=== PATIENT | female | born 1985 | race Caucasian/White ===

== ENCOUNTER 2023-09-15 16:37 | Outpatient (CLI) | payer OTHER, SELFPAY ==
[2023-09-15 20:17] LABS: Chlamydia DNA Amplified* NOT DETECTED (No Detected); GC DNA Amplified* NOT DETECTED (No Detected)
== END 2023-09-15 16:38 | disposition home or self-care (01) ==
PROVIDERS: PCP Family Medicine; Visit Provider Registered Nurse
DX: Z11.3 Encounter for screening for infections with a predominantly sexual mode of transmission (principal); Z13.220 Encounter for screening for lipoid disorders; Z13.29 Encounter for screening for other suspected endocrine disorder; Z13.1 Encounter for screening for diabetes mellitus
CPT/HCPCS: 80061; 82947; 84443; 87491; 87591

== ENCOUNTER 2025-01-25 17:38 | Emergency (ER) | payer OTHER, SELFPAY ==
[2025-01-25] VITALS (14 sets, daily range): BP systolic 105–156; BP diastolic 80–91; PULSE 80–90; RESP 18; TEMP 37.2–37.8; O2SAT 96–99; BMI 36.3
--- OUTSIDE RECORDS SUMMARY | 2025-01-25 17:40 | XMS_ITS | Clinical Summary ---
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 30 Capsule 4 Active dextroamphetamine- amphetamine (Adderall XR) 10 mg Extended-Release capsuleIndications :ADHD (attention deficit hyperactivity disorder), combined type Take 1 Capsule (10 mg) by mouth once daily. 30 Capsule 4 Active dextroamphetamine- amphetamine (Adderall XR) 10 mg Extended-Release capsuleIndications :ADHD (attention deficit hyperactivity disorder), combined type Take 1 Capsule (10 mg) by mouth once daily. 30 Capsule 5 Active dextroamphetamine- amphetamine (Adderall XR) 30 mg Extended-Release capsuleIndications :ADHD (attention deficit hyperactivity disorder), combined type Take 1 Capsule (30 mg) by mouth once daily. 30 Capsule 5 Active Active Problems Problem Noted Date Diagnosed Date Multiple thyroid nodules 01/11/2017 Overview (01/11/2017): Due for follow up ultrasound in 10/2017 Obesity, Class II, BMI 35-39.9 08/05/2016 Overview (08/05/2016): Off Phentiramine by 07/08/17 ADHD (attention deficit hype ractivity disorder), combined type 12/25/2014 Overview (05/22/2020): Betzy is at max dose of 40 mg daily as of 05/22/2020. Marlo Golden MD signed electronically .................... 05/22/2020 Chronic fatigue syndrome 10/31/2014 Overview (10/31/2014): Diagnosed by me on 10/31/14 based on 7 months of fatigue and no other diagnosis. She also has cognitive impairment, muscle/joint pains, headaches, sore throat, unrefreshing sleep, and malaise after exercise. She also had a negative lab work up. Marlo Golden MD 10/31/2014. Fatigue 10/24/2014 Overview (10/24/2014): She has always needed more sleep than others. Symptoms worsened in 2013 & 2014 She had a perfectly normal sleep study in 2013. Anxiety 08/08/2014 Diarrhea 01/05/2012 Overview (01/05/2012): EGD 12/2011 normal Colonoscopy 12/2011 normal IBS (irritable bowel syndrome) 03/23/2010 Resolved Problems Problem Noted Date Diagnosed Date Resolved Date Exercise induced bronchospasm 11/08/2013 03/29/2024 Chest pain, unspecified 08/21/200706/10 Overview (08/21/2007): She has had them for 5 years. Normal chest radiograph and EKG. Immunizations Immunization Administration Dates Next Due COVID-19 vaccine (Teliportme 30mcg/0.3mL) JOSÉ MORE 08/04/2020,07/14/2020 DTP 03/06/1991 DTaP 04/16/1986,02/19/1986,1985 HIB HbOC (HibTITER) 04/07/1989 HPV 9 (Gardasil 9) 10/20/2023 Hepatitis B (Adult) 09/08/2006,02/15/2000,1999 Influenza A (H1N1), Inactivated 05/06/2009 Influenza, IIV3 (Age >=3 years) 05/10/2017,04/23,05/06/2011 Influenza, IIV4 04/11/2023,05/06/2022,07/16/2015 MMR 10/23/1997,01/30/1987 Polio Virus, Unspecified 02/19/1986,1985 Td (Age >=7 Years) 10/23/1997 Tdap 07/06/2017,09/04/2007 Family History Medical History Relation Name Comments Other Father Kidney stones, Arthritis Heart Disease Maternal Grandfather Psychiatric illness Maternal Grandmother depression at age 76 Other Mother Spondylolishtes is, migraines, arthritis, fatigue Psychiatric illness Mother anxiety Psychiatric illness Paternal Aunt questio n bipolar behaviors Diabetes Paternal Grandfather Heart Disease Paternal Grandfather [place] in 50s Hypertension Paternal Grandfather Diabetes Paternal Grandmother Heart Disease Paternal Grandmother Other Sister kidney stones, migraines, anxiety, asthma Anesthesia Malignant Hyperthermia No Family History Blood Disease No Family History Relation Name Status Comments Father Maternal Grandfather Maternal Grandmother Mother Paternal Aunt Paternal Grandfather Paternal Grandmother Sister Social History Tobacco Use Types Packs/Day Years Used Date Smoking Tobacco: Never Smokeless Tobacco: Never Tobacco Cessation:Counseling Given: Yes Alcohol Use Standard Drinks/Week Comments Yes 0 (1 standard drink = 0.6 oz pur e alcohol) PHQ-2 Answer Date Recorded PHQ-2 TOTAL SCORE 0 03/29/2024 Social Connections Answer Date Recorded Do you often feel lonely or isolated from those around you? 0 03/29/2024 Alcohol Use Answer Date Recorded How often do you have a drink containing alcohol ? 2 05/16/2023 How many drinks containing a lcohol do you have on a typical day when you are drinking? 0 05/16/2023 How often do you have five or more drinks on one occasion? 0 05/16/2023 Financial Resource Strain Answer Date R ecorded Difficulty of Paying Living Expenses 3 03/29/2024 Difficulty of Paying Living Expenses Not on file 03/29/2024 Food Insecurity Answer Date Recorded Do you worry your food will run out before you are able to buy more? 1 03/29/2024 Transportation Needs Answer Date Record ed Does lack of transportation keep you from medica l appointments? 1 03/29/2024 Does lack of transportation keep you from work, meetings or getting things that you need? 1 03/29/2024 Housing Stability Answer Date Recorded What is your housing situation today? 1 03/29/2024 Utilities Answer Date Recorded Do you have trouble paying f or utilities (for example, heat, electricity, water, phone)? 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 Not on file Not on file Not on file Not on file Not on file Not on file Not on file Obstetrics History Para Term AB IAB SAB Ectopic Multiple Livin g Live Births 3 1 1 2 Date Outcome GA Total Labor Labor/2nd/3rd Weight Sex Type Anes PTL Mary A1 A5 Name Clin F 2009 Term 40w0 d 10h 00m/ 3.77 kg (8 lb 5 oz) F Vag Last Filed Vital Signs Vital Sign Reading Time Taken Comments Blood Pressure 128/85 03/29/2024 2:25 PM CDT Pulse 88 03/29/2024 2:25 PM CDT Temperature 37.2 C (98.9 F) 05/31/2023 4:26 PM RECESSING MACHINE OPERATOR Respiratory Rate 16 02/20/2015 1:26 PM CDT Oxygen Saturation 98% 03/29/2024 2:25 PM CDT Inhaled Oxygen Concentration - - Weight 108.4 kg (238 lb 14.4 oz) 03/29/2024 2:25 PM CDT Height 170 cm (5' 6.93) 03/29/2024 2:25 PM CDT Body Mass Index 37.5 03/29/2024 2:25 PM CDT Plan of Treatment Health Maintenance Due Date Last Done Comments Hepatitis C screening for age 18-79 10/18/2003 COVID-19 vaccine series ( season) 2024 08/04/2020, 07/14/2020 Influenza Vaccine (#1) 2025 , 05/06/2022, 05/10/2017, Additional history exists BMI (ht and wt on same day) for age 18+ 03/29/2025 03/29/2024, 05/16/2023, 07/23/2021, Additional history exists Depression screening for age 12+ 03/29/2025 03/29/2024, 11/11/2022, 05/22/2020, Additional history exists Tetanus booster 07/06/2027 07/06/2017, 08/11, 10/23/1997 Pap test for age 21-65 09/14/2028 , 09/15/2023, 01/11/2019, Additional history exists Hepatitis B series for 19+ Completed 09/08, 02/15/2000, 12/10/1999 HIV for age 15-65 Completed 04/17/2015, , 11/14/2008 Pneumococcal series for age 6-49 Aged Out No longer eligible based on patient's age to complete this topic Procedures Procedure Name Priority Date/Time Associated Diagnosis Comments CLINICAL RESEARCH MANAGER THIN PREP PAP SCREEN IMAGED Routine 09/15/2023 4:30 PM RECESSING MACHINE OPERATOR ANTI HIV 1/2 Routine 04/17/2015 1:58 PM CDT Encounter for supervision of other normal in first trimester (HC) from Last 3 Months or Most Recently Relevant to Health Maintenance Results * (ABNORMAL) CLINICAL RESEARCH MANAGER THIN PREP PAP SCREEN IMAGED (09/15/2023 4:30 PM RECESSING MACHINE OPERATOR) Case Report Gynecologic Cytology Report Case: [id number] Authorizing Provider: Audrey Sanchez NP Collected: 09/15/2023 1630 Ordering Location: [facility] Received: 09/19/2023 1232 First Screen: Johnna Enriquez Pathologist: Daylin Meehan MD Specimen: CLINICAL RESEARCH MANAGER ThinPrep Vial Screening, Cervical 09/25/2023 4:03 PM CDT [facility] INTERPRETATION/ RESULT LOW GRADE SQUAMOUS INTRAEPITHELIAL LESION (LSIL) CANNOT EXCLUDE A HIGHER-GRADE LESION(A) (none) 09/25/2023 4:03 PM CDT [facility] at 1603 CDT SPECIMEN ADEQUACY Satisfactory for evaluation Endocervical component present 09/25/2023 4:03 PM CDT [facility] HPV REQUEST HPV and PAP 09/25/2023 4:03 PM CDT [facility] Date of LMP 09/14/2023 09/25/2023 4:03 PM CDT [facility] Last Pap Date 05/15/2015 09/25/2023 4:03 PM CDT [facility] Last Pap Result NIL 4:03 PM CDT [facility] Abnormal Pap or Jasper Bx in last 5 years No 09/25/2023 4:03 PM CDT [facility] Menstrual Status Regular Periods 09/25/2023 4:03 PM CDT [facility] Jasper Bx Done Today No 09/25/2023 4:03 PM CDT [facility] Additional Information 09/25/2023 4:03 PM CDT [facility] Comment: Interpreted at [facility] Central Laboratory - [address] [address] Automated Review Successful 09/25/2023 4:03 PM CDT [facility] Comment:Specimen processed s uccessfully by automated assembler small products device, ThinPrep Imaging System, [employer] ANCILLARY TESTING CLINICAL RESEARCH MANAGER HPV Ordered, Please see separate report 09/25/2023 4:03 PM CDT [facility] Note The pap test is a screening technique, not a diagnostic procedure. It is used primarily to screen for squamous cancers and precursor lesions. Published studies have shown that it is subject to both false negative and false positive results. The pap test should not be used as the sole means to diagnose or exclude pre-malignant and malignant lesions. 09/25/2023 4:03 PM CDT [facility] Other (Cervical) 09/15/2023 4:30 PM RECESSING MACHINE OPERATOR 09/19/2023 12:32 PM CDT us Audrey Sanchez NP PATHOLOGY/CYTOLOGY Final Result [facility] [address] [place] [address], * ANTI HIV 1/2 (04/17/2015 1:58 PM CDT) HIV-1/HIV-2 ANTIBODY Non-Reacti ve Non-Reacti ve 04/17/2015 8:02 PM CDT [facility] Blood specimen (specimen) BLOOD SPECIMEN / Unknown Venipuncture / Unknown 04/17/2015 1:58 PM CDT 04/17/2015 1:59 PM CDT Narrative [facility] - 04/17/2015 8:02 PM CDT HIV-1 p24 and HIV-1/HIV-2 Ab not detected us Dena Cha NP SEND OUTS F inal Result [facility] [address] [place] [address], from Last 3 Months or Most Recently Relevant to Health Maintenance [id number] Care Teams Laundromat Worker Relationship Specialty Start Date End Date Marlo Golden MD [address] [place] [id number] [facility] - General 01/05/09
--- NOTE | 2025-01-25 17:55 | ED.ABDPAIN ---
HPI - Abdominal Pain General Time Seen by Provider: 17:55 Date Seen: 01/25/25 Chief Complaint: Abdominal Pain Stated Complaint: abdominal pain Time Seen by Provider: 01/25/25 17:40 Source: patient and RN notes reviewed Mode of arrival: ambulatory Limitations: no limitations History of Present Illness HPI narrative: This 39-year-old female is coming to the ER with right lower quadrant abdominal pain starting today. She has felt fevers with this but temperature was normal at home this morning when checked. This started earlier this morning. She actually did have nausea and vomiting, threw up once. She was subsequently able to eat some waffles around 2:00 p.m. and that did go okay. No diarrhea. She has no urinary symptoms, no flank pain. She states she did have an episode of this before in November that was self-limited. She did have a standing order to get an ultrasound in case it happened again. She does not have any known history of ovarian cysts. She has had an endometrial ablation and bilateral salpingectomies/tubal ligation done before. She has had a cholecystectomy. She has had anesthesia for other surgeries as well. MD elicited complaint: abdominal pain Related Data Home Medications ?Medication ?Instructions ?Recorded ?Confirmed dextroamphetamine-amphetamine ER 1 cap PO DAILY 09/15/23 01/25/25 30 mg 24hr capsule,extend release Allergies Allergy/AdvReac Type Severity Reaction Status Date / Time levothyroxine Allergy Mild Diarrhea Verified 01/25/25 19:01 Review of Systems Status of ROS Reports: 6 or more systems reviewed and unremarkable except as noted in History and below [facility] Medical History History of vaginal delivery Surgical History H/O adenoidectomy ?Z90.89 - Acquired absence of other organs (ICD-10) History of breast augmentation (2016) ?Z98.82 - Breast implant status (ICD-10) History of tonsillectomy (1994) ?Z90.89 - Acquired absence of other organs (ICD-10) History of endometrial ablation (2015) ?Z98.890 - Other specified postprocedural states (ICD-10) History of tubal ligation (02/20/19) ?Z98.51 - Tubal ligation status (ICD-10) History of cholecystectomy (09/18/09) ?Z90.49 - Acquired absence of other specified parts of digestive tract (ICD-10) Family History Other Diabetes Heart disease Kidney stones Lung cancer Migraines Stroke 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[facility] What is your current living situation?: I presently have a place to live Problems where you live: no known problems In the past 12 months, utilities in danger of being shut off: no In past 12 months, lack of transportation kept you from medical appts, meetings, work, or getting things needed for daily living: no In the past 12 mos, have been you worried that your food would run out before you had money to buy more?: never true In the past 12 mos, the food you bought just didn't last and you didn't have money to buy more?: never true How often does anyone, including family, friends and others, physically hurt you: never How often does anyone, including family, friends and others, insult or talk down to you: never How often does anyone, including family, friends and others, threaten you with harm: never How often does anyone, including family, friends and others, scream or curse at you: never Exam Const: Vital Signs, click to edit/add: Vital Signs - 24 hr 01/25/25 17:42 01/25/25 19:36 Temperature 100.0 F H 98.9 F Pulse Rate [Right Pulse Oximeter] 80 Respiratory Rate 18 Blood Pressure [Ri ght Upper Arm] 156/91 H Pulse Oximetry 99 Oxygen Delivery Me thod Room Air This 39-year-old female is alert, interactive, no apparent distress but looks like she does not feel well. She is sitting up on the edge of the bed. Sclera clear, face atraumatic coming able speak in complete sentences. Lungs are clear, good air entry, no wheezing crackles, no tachypnea, no accessory muscle use. No CVA tenderness on either side. CV regular rate and rhythm, no murmur, normal S1-S2, no S3-S4. Abdomen is soft, nontender, nondistended. She really does not have any significant abdominal tenderness on palpation but where the pain is is right in the right lower quadrant, she states the majority of it is right over from the anterior superior iliac spine in the abdomen. I do not feel any masses, there is certainly no rebound or guarding. Documenting provider has reviewed patient's vital signs: yes Course Course ED Course: This 39-year-old female is coming in with fever and right lower quadrant abdominal pain. We are going to proceed with CT imaging to rule out intra-abdominal pathology. We do need to consider appendicitis. Based on her abdominal exam, I do not think ovarian torsion is as likely but certainly could be a possibility, may need to consider pelvic ultrasound if there is concern for this on the CT. Could be inflammatory disorders of the colon without any diarrhea presenting. Will get full complement of labs. Will start IV fluids, start with Toradol and Zofran. If the Toradol is not covering her pain she is aware to let us know and we will move to narcotic pain management. Have discussed with her NPO status at this point given that this could be something potentially surgical. Reevaluation(s) Time of Reevaluation #1: 19:39 Reevaluation #1: Did review patient CT with her. There is nothing on this CT showing any acute intra-abdominal pathology. Recheck of an oral temperature shows that she is at 98.9? F. patient is having no vaginal discharge, no vaginal symptoms. External genitalia briefly examined and appear normal. Bimanual exam reveals no cervical motion tenderness, uterus feels anteverted but is not tender, no significant enlargement. Patient has no adnexal tenderness. It is unlikely the diagnostic etiology is pelvic inflammatory disease given that there really is not any pelvic pain on bimanual examination. Her pain is over to the inside of the anterior superior iliac spine but I really a.m. not finding any reproducible tenderness on her bimanual exam either. At this time will discharge to home for further outpatient observation. We have discussed signs and symptoms for return. She is requested to follow up in clinic next week or return if worsening. We will just have her stick to Tylenol and ibuprofen so we are not masking anything concerning. Her last episode was December 06, she actually left work and went home to come to the ER, just ended up resting and by the next day the pain was gone. I do see that there is a history of endometriosis. Time of Reevaluation #2: 19:57 Reevaluation #2: Did briefly stop back in to talk to [place]. We really had and discussed endometriosis but did review with her that that certainly can be an unidentified causative etiology of abdominal pain. I urged her to follow-up with OB next week. I will send her with 4 tablets of 5 mg oxycodone from [facility] to cover more moderate pain. She does understand if she is having significant worsening of pain that she does need re-evaluation. Vital Signs Vital signs: Initial Vital Signs Temperature 100.0 F H 01/25/25 17:42 Temperature Source Temporal Artery Scan 01/25/25 17:42 Pulse Rate 80 01/25/25 17:42 Pulse Rhythm Regular 01/25/25 17:42 Pulse Strength 3+ Normal 01/25/25 17:42 Respiratory Rate 18 01/25/25 17:42 Blood Pressure 156/91 H 01/25/25 17:42 Blood Pressure Mean 112 H 01/25/25 17:42 Blood Pressure Position Sitting 01/25/25 17:42 Pulse Oximetry 99 01/25/25 17:42 Oxygen Delivery Method Room Air 01/25/25 17:42 Vital Signs Temperature 100.0 F H 01/25/25 17:42 Pulse Rate 80 01/25/25 17:42 Respiratory Rate 18 01/25/25 17:42 Blood Pressure 156/91 H 01/25/25 17:42 Pulse Oximetry 99 01/25/25 17:42 Oxygen Delivery Method Room Air 01/25/25 17:42 Temperature 98.9 F 01/25/25 19:36 Pulse Rate 80 01/25/25 17:42 Respiratory Rate 18 01/25/25 17:42 Blood Pressure 156/91 H 01/25/25 17:42 Pulse Oximetry 99 01/25/25 17:42 Oxygen Delivery Method Room Air 01/25/25 17:42 Medications Administered Medications: Generic Name Dose Route Start Last Admin Trade Name Freq PRN Reason Stop Dose Admin Sodium Chloride 1,000 mls @ 500 mls/hr 01/25/25 18:07 01/25/25 18:30 0.9 % Sodium Chloride 1000 Ml IV 01/25/25 20:06 500 mls/hr .Q2H JOHN Administration Discontinued Medications Generic Name Dose Route Start Last Admin Trade Name Emily PRN Reason Stop Dose Admin Ketorolac Tromethamine 15 mg 01/25/25 18:06 01/25/25 18:34 Ketorolac 15 Mg/Ml Inj IVP 01/25/25 18:07 15 mg ONCE ONE Administration Ondansetron HCl 4 mg 01/25/25 18:06 01/25/25 18:34 Ondansetron 2 Mg/Ml Inj IVP 01/25/25 18:07 4 mg ONCE ONE Administration MDM - Abdominal Pain Lab Data Attestation: I reviewed the patient's lab results. Labs: Lab Results 01/25/25 01/25/25 Range/Units 18:13 18:25 WBC 10.98 (4.50-11.00) K/uL RBC 5.04 (4.00-5.20) m/uL Hgb 14.3 (12.0-16.0) gm/dL Hct 41.4 (33.0-51.0) % MCV 82 (80-100) fL MCH 28 (26-34) pg MCHC 35 (32-36) gm/dL RDW Coeff of Rene 12.1 (11.5-15.5) % Plt Count 294 (140-440) K/uL Neut % (Auto) 64.9 (42.0-72.0) % Lymph % (Auto) 26.4 (20-44) % Payne % (Auto) 6.9 (0.0-11.0) % Eos % (Auto) 1.1 (0.0-7.0) % Baso % (Auto) 0.5 (0.0-3.0) % Neut # (Auto) 7.13 H (1.7-7.0) K/uL Lymph # (Auto) 2.90 (0.90-2.90) K/uL Payne # (Auto) 0.80 (0.00-0.90) K/UL Eos # (Auto) 0.12 (0.00-0.50) K/uL Baso # (Auto) 0.05 (0.00-0.30) K/uL Abs Immat Gran (auto) 0.02 (0.00-0.30) K/uL Imm/Tot Granulo (auto) 0.2 % Sodium 137 (135-149) mmol/L Potassium 3.4 L (3.6-5.1) mmol/L Chloride 103 (96-114) mmol/L Carbon Dioxide 26 (20-32) mmol/L Anion Gap 8 (7-15) mEq/L BUN 11 (5-24) mg/dL Creatinine 0.7 (0.5-1.5) mg/dL Estimated Creat Clear 101.01 Estimated GFR 113 ml/min Glucose 91 (60-115) mg/dL Lactate 1.6 (0.5-1.9) mmol/L Calcium 9.1 (8.4-10.6) mg/dL Total Bilirubin 0.7 (0.1-1.5) mg/dL AST 27 (12-35) U/L ALT 23 (4-35) U/L Alkaline Phosphatase 78 (40-150) U/L C-Reactive Protein 0.6 (0.5-1.0) mg/dL Total Protein 7.6 (6.0-8.3) g/dL Albumin 4.4 (3.3-5.0) g/dL Urine Color Yellow (Yellow) Urine Appearance Clear (Clear) Urine pH 5.5 (5.0-8.5) Ur Specific Sargent >= 1.030 (1.000-1.030) Urine Protein 1+ A (Negative) Urine Glucose (UA) Negative (Negative) Urine Ketones Negative (Negative) Urine Blood Negative (Negative) Urine Nitrite Negative (Negative) Urine Bilirubin Negative (Negative) Urine Urobilinogen 0.2 (0.2-1.0) Ur Leukocyte Esterase Negative (Negative) Urine RBC 0-2 (0-2) Urine WBC 0-2 (0-5) Ur Squamous Epith Cells Few (None-Few) Calcium Oxalate Crystal Few A (None) Other Sediment Few A (None) Urine Bacteria Few A (None) Fine Granular Casts Few A (None) Urine Mucus Many A (None) Urine HCG, Qual Negative (Negative) Imaging Data CT scan - abdomen: Attestation: I have reviewed the pertinent imaging results. Radiologist's impression: Patient: GEORGIA CRUZ Facility:?[facility] Patient ID:?[id number] Site Patient ID:?[id number]. Site :?[id number] Study:?CT-Abdomen/Pelvis 110CC ISOVUE 370-01/25/2025 7:00:29 PM Ordering Physician:Estela Zapata Final Report: INDICATION: RLQ PAIN X 16 HOURS. N/V. TECHNIQUE: CT abdomen and pelvis acquired with 110 cc Isovue 370 IV contrast. COMPARISON: CT abdomen pelvis dated 09/06/2009. FINDINGS: Lower chest: Partially visualized bilateral breast implants Liver: Segment 2A 1.4 cm cystic focus (2). Additional segment 4B subcentimeter hypodensity, too small to characterize. Gallbladder and bile ducts: Cholecystectomy. No biliary ductal dilatation. Pancreas: Unremarkable. No mass or inflammation. Spleen: Unremarkable. Normal in size. No masses. Adrenal glands: Unremarkable. No nodules. Kidneys: Unremarkable. No suspicious masses, stones, or hydronephrosis. GI tract: Normal in caliber. No sign of mass or inflammation. Normal appendix. Vasculature: Abdominal aorta is normal in caliber. Mesenteric arteries are patent. Lymph nodes: No lymphadenopathy. Peritoneum/Abdominal Wall: Unremarkable. No sign of mass or infiltration. No free air or significant free fluid. Pelvis: Right uterine fundus 1.5 cm hypodense focus is nonspecific, but could reflect a fibroid or relatively loculated endometrial fluid. The urinary bladder is underdistended, limiting evaluation. Bones: Unremarkable for age. IMPRESSION: No acute findings in the abdomen or pelvis. Please note that all CT scans at this facility use dose modulation, iterative reconstruction, and/or weight-based dosing when appropriate to reduce radiation dose to as low as reasonably achievable. Dictated by Curly Huber MD @ 01/25/2025 7:23:05 PM (Electronic Signature) Discharge Plan Discharge Clinical Impression: Abdominal pain, RLQ Patient Disposition: Home, Self-Care Condition: Stable Instructions: Acute Abdominal Pain (ED) Additional Instructions: Need to follow up in clinic for recheck next week. Can use Tylenol or ibuprofen as needed for pain, follow bottle directions for dosing. I do think that you should consider seeing managing jeweler for this given your history of endometriosis. Labs were reassuring as well. Need to return if worsening pain, have fevers over 101, have vomiting with this again or develops other concerning symptoms. Activity Level: Activity as Tolerated Prescriptions: No Action dextroamphetamine-amphetamine 30 mg capsule,extended release 24hr 1 cap PO DAILY Follow Up/Referrals: Marlo Golden MD [Primary Care Provider, Family Practice] Stand Alone Forms: [employer] Info Instructions
--- NOTE | 2025-01-25 18:06 | CRLHL7_ITS ---
For Patients: As a result of the Century Cures Act, medical imaging exams and procedure reports are released immediately into your electronic medical record. You may view this report before your referring provider. If you have questions, please contact your health care provider. INDICATION: RLQ PAIN X 16 HOURS. N/V. TECHNIQUE: CT abdomen and pelvis acquired with 110 cc Isovue 370 IV contrast. COMPARISON: CT abdomen pelvis dated 09/06/2009. FINDINGS: Lower chest: Partially visualized bilateral breast implants Liver: Segment 2A 1.4 cm cystic focus (2/25). Additional segment 4B subcentimeter hypodensity, too small to characterize. Gallbladder and bile ducts: Cholecystectomy. No biliary ductal dilatation. Pancreas: Unremarkable. No mass or inflammation. Spleen: Unremarkable. Normal in size. No masses. Adrenal glands: Unremarkable. No nodules. Kidneys: Unremarkable. No suspicious masses, stones, or hydronephrosis. GI tract: Normal in caliber. No sign of mass or inflammation. Normal appendix. Vasculature: Abdominal aorta is normal in caliber. Mesenteric arteries are patent. Lymph nodes: No lymphadenopathy. Peritoneum/Abdominal Wall: Unremarkable. No sign of mass or infiltration. No free air or significant free fluid. Pelvis: Right uterine fundus 1.5 cm hypodense focus is nonspecific, but could reflect a fibroid or relatively loculated endometrial fluid. The urinary bladder is underdistended, limiting evaluation. Bones: Unremarkable for age. IMPRESSION: No acute findings in the abdomen or pelvis. Please note that all CT scans at this facility use dose modulation, iterative reconstruction, and/or weight-based dosing when appropriate to reduce radiation dose to as low as reasonably achievable. Dictated by Curly Huber MD @ 01/25/2025 7:23:05 PM (Electronically Signed)
[2025-01-25 18:22] LABS: Appearance Urine Clear (Clear)
[2025-01-25 18:25] LABS: Ur HCG Qualitative* Negative (Negative)
[2025-01-25] MEDS: ONDANSETRON 2 MG/ML inj 4 MG IVP (18:34)
[2025-01-25 18:40] LABS: Lactate* 1.6 mmol/L (0.5-1.9)
[2025-01-25 18:41] LABS: Hematocrit* 41.4 % (33.0-51.0); Hemoglobin* 14.3 gm/dL (12.0-16.0); Immature Granulocytes Abs Auto 0.02 K/uL (0.00-0.30); Immature Granulocytes Pct Auto 0.2 %; Lymphocytes Absolute Auto 2.90 K/uL (0.90-2.90); Mean Corpuscular HGB Conc 35 gm/dL (32-36); Mean Corpuscular Hemoglobin 28 pg (26-34); Mean Corpuscular Volume 82 fL (80-100); RDW Coefficient of Variation % 12.1 % (11.5-15.5); Red Blood Count* 5.04 m/uL (4.00-5.20); White Blood Count* 10.98 K/uL (4.50-11.00)
[2025-01-25 18:46] LABS: Slide Review Reflex No
[2025-01-25 18:47] LABS: Other Sediment Urine Few
[2025-01-25 18:56] LABS: Chloride* 103 mmol/L (96-114)
[2025-01-25 18:57] LABS: Albumin* 4.4 g/dL (3.3-5.0); Potassium* 3.4 mmol/L (3.6-5.1); Sodium* 137 mmol/L (135-149)
[2025-01-25 19:00] LABS: Alanine Aminotransferase* 23 U/L (4-35); Alkaline Phosphatase* 78 U/L (40-150); Anion Gap 8 mEq/L (7-15); Aspartate Amino Transferase* 27 U/L (12-35); Bilirubin Total* 0.7 mg/dL (0.1-1.5); Blood Urea Nitrogen* 11 mg/dL (5-24); Carbon Dioxide* 26 mmol/L (20-32); Creatinine* 0.7 mg/dL (0.5-1.5); Est. Creatinine Clearance* 101.01; Estimated Glomerular Filt Rate 113 ml/min; Total Protein* 7.6 g/dL (6.0-8.3)
[2025-01-25 19:01] LABS: Calcium* 9.1 mg/dL (8.4-10.6); Glucose* 91 mg/dL (60-115)
== END 2025-01-25 20:37 | disposition home or self-care (01) ==
PROVIDERS: Emergency Provider Family Medicine; PCP Family Medicine
DX: R10.31 Right lower quadrant pain (principal)
CPT/HCPCS: 36415; 74177; 80053; 81001; 81025; 83605; 85025; 86140; 87086; 94761; 96374; 96375; 99284; J1885; J2405; J7030; Q9967

== ENCOUNTER 2025-01-28 16:32 | Outpatient (CLI) | payer OTHER, SELFPAY ==
--- NOTE | 2025-01-28 16:45 | CRLHL7_ITS ---
For Patients: As a result of the Century Cures Act, medical imaging exams and procedure reports are released immediately into your electronic medical record. You may view this report before your referring provider. If you have questions, please contact your health care provider. CLINICAL HISTORY: Pelvic pain TECHNIQUE: Real time, mccarty scale images were acquired of the pelvis using a transabdominal and transvaginal approach. Color Doppler analysis was performed of the ovaries. FINDINGS: The uterus measures 8.8 x 4.2 x 6.2 centimeters Hypoechoic rounded structure with rim calcification near the fundus of the uterus indeterminate could be related to complex rounded fluid collection unclear if this is located within the endometrial cavity. This measures 1.6 x 0.7 x 1 centimeters. The right ovary measures 3.8 x 2 x 2.2 centimeters left ovary measures 2.5 x 2.4 x 2.1 centimeters blood flow to both ovaries. IMPRESSION: Complex cystic appearing structure with rim calcification measuring 1.6 centimeters near the fundus could be endometrial in location. Would recommend direct visualization. Dictated by Sharon Medley MD @ 01/31/2025 9:49:40 AM (Electronically Signed)
== END 2025-01-28 16:33 | disposition home or self-care (01) ==
LOC: US 16:33
PROVIDERS: PCP Family Medicine; Visit Provider Registered Nurse
DX: R10.2 Pelvic and perineal pain (principal); R93.89 Abnormal findings on diagnostic imaging of other specified body structures
CPT/HCPCS: 76830; 76856; 93976

== ENCOUNTER 2025-01-31 14:36 | Outpatient (CLI) | payer OTHER, SELFPAY ==
[2025-01-31 18:52] LABS: Bacterial Vaginosis* Negative (Negative); Candida glab/krus NOT DETECTED (No Detected)
[2025-01-31 19:22] LABS: Chlamydia DNA Amplified* NOT DETECTED (No Detected); GC DNA Amplified* NOT DETECTED (No Detected)
[2025-02-03 18:33] LABS: HPV Source Cervix
[2025-02-04 19:40] LABS: HPV Genotype 16 by TMA Not Detected; HPV Genotype 18/45 by TMA Not Detected
[2025-02-09 12:38] LABS: Pap Test Digital Imaging Done; Pap Test Reviewed by Pathologi Done
== END 2025-01-31 14:37 | disposition home or self-care (01) ==
PROVIDERS: PCP Family Medicine; Visit Provider Registered Nurse
DX: N89.8 Other specified noninflammatory disorders of vagina (principal); Z11.3 Encounter for screening for infections with a predominantly sexual mode of transmission; Z12.4 Encounter for screening for malignant neoplasm of cervix; Z11.51 Encounter for screening for human papillomavirus (HPV)
CPT/HCPCS: 81513; 87481; 87491; 87591; 87624; 87625; 87661; 88141; 88142; 88175